=== PATIENT | male | born 2000 | race African-American/Black ===

== ENCOUNTER 2022-01-18 01:51 | Emergency (ER) | payer BC, OTHER ==
[~2022-01-18] VITALS: Ht 177.8 cm; Wt 88.7 kg
[2022-01-18 03:59] VITALS: BP 112/78
== END 2022-01-18 03:59 ==
LOC: ER 01:51
DX: N64.52 Nipple discharge (principal); J45.909 Unspecified asthma, uncomplicated
CPT/HCPCS: 99281